=== PATIENT | male | born 1995 | race Caucasian/White ===

== ENCOUNTER 2020-10-18 08:28 | Emergency (ER) | payer BC, SELFPAY ==
[2020-10-18 08:34] VITALS: BP 133/64; PULSE 84; RESP 16; TEMP 36.8; O2SAT 99
--- NOTE | 2020-10-18 08:50 | W.ED.GENAD ---
Discharge Plan Discharge Details Chief Complaint: Orthopedic Primary Care Provider: Yamilex,Local ED Provider: Disha Tai Home Meds and New Rx's Prescriptions: No Action No Known Home Meds RF: 0 HPI General Mode of arrival: ambulatory. Date/Time Provider Initiated Documentation: 10/18/20 08:42. Limitations to Documentation: no limitations. Information obtained by: patient. HPI Narrative: This 25-year-old male presents with injury to bilateral ankles. He states he was playing softball yesterday and his feet got stuck in the mud, caused him to fall forward and he twisted both ankles. He states he had trouble ambulating after the event occurred. Denies any additional complaints. He denies any knee pain or back pain. Did not hit his head. States he is otherwise healthy. Took ibuprofen last evening. Has not taken any meds today. Denies strength or sensation change. Related Data Home Medications Medication Instructions Recorded Confirmed Unknown [No Known Home Meds] 10/18/20 10/18/20 Allergies Allergy/AdvReac Type Severity Reaction Status Date / Time codeine Allergy Mild Psychosis Unverified 10/18/20 08:38 General Stated Complaint: Orthopedic CLAIRE: 4 Review of Systems Narrative: Review of systems negative x3 aside from where indicated in HPI [facility] Medical History (Updated 04/05/19 @ 14:56 by Olga Castillo) Seasonal allergic rhinitis Social History Smoking/Tobacco Use Status: Never Smoking risk assessment performed?: Yes Substance use type: does not use Course Vital Signs Vital signs: Vital Signs Temperature 36.8 C 10/18/20 08:34 Pulse 84 10/18/20 08:34 Respiratory Rate 16 10/18/20 08:34 Blood Pressure 133/64 10/18/20 08:34 Pulse Oximetry 99 10/18/20 08:34 Temperature 36.8 C 10/18/20 08:34 Temperature Source Skin 10/18/20 08:34 Pulse 84 10/18/20 08:34 Respiratory Rate 16 10/18/20 08:34 Respiratory Effort Non-Labored 10/18/20 08:34 Blood Pressure 133/64 10/18/20 08:34 Blood Pressure Position Sitting 10/18/20 08:34 Pulse Oximetry 99 10/18/20 08:34 Oxygen Delivery Method Room Air 10/18/20 08:34 Oxygen Flow Rate 0 10/18/20 08:34 Pain Level 8 10/18/20 08:39
--- NOTE | 2020-10-18 09:16 | DI.RAD_ITS ---
Exam(s) XR ANKLE LT COMPLETE EXAM: XR ANKLE LT COMPLETE CLINICAL HISTORY: left lat mal pain twisting. TECHNIQUE: 2D digital imaging was performed. COMPARISON: CR XR ANKLE RT COMPLETE from 10/18/2020 FINDINGS: There is no evidence of fracture or widening of the mortise. Bone density is normal. Talar dome unr emarkable. No osseous lesions. No talar coalition. IMPRESSION: DATA REPOSITORY: RADIATION DOSE DELIVERED:
--- NOTE | 2020-10-18 09:17 | DI.RAD_ITS ---
Exam(s) XR ANKLE RT COMPLETE EXAM: XR ANKLE RT COMPLETE CLINICAL HISTORY: r lat mal pain, twist. TECHNIQUE: 2D digital imaging was performed. COMPARISON: No exams were available for comparison FINDINGS: There is soft tissue swelling laterally. No evidence of obvious fracture nor widening of the mortise . However, on the lateral view there is a very subtle cortical irregularity in the lateral malleolus . Possibly nondisplaced fracture. Talar dome appears unremarkable. Benign-appearing sclerotic bone lesions seen in the distal tibia. Ankle and subtalar joints appear unremarkable. IMPRESSION: Very subtle nondisplaced fracture of the lateral malleolus. There is overlying soft tissue swelling. DATA REPOSITORY: RADIATION DOSE DELIVERED:
== END 2020-10-18 10:00 | disposition home or self-care (01) ==
PROVIDERS: Emergency Provider Physician Assistant
DX: S82.491A Other fracture of shaft of right fibula, initial encounter for closed fracture (principal); M25.572 Pain in left ankle and joints of left foot; X50.1XXA Overexertion from prolonged static or awkward postures, initial encounter
CPT/HCPCS: 99284; 73610; 99283

== ENCOUNTER 2021-02-14 15:17 | Emergency (ER) | payer BC, SELFPAY ==
[2021-02-14 15:31] VITALS: BP 139/80; PULSE 88; RESP 20; TEMP 36.2; O2SAT 100
--- NOTE | 2021-02-14 16:30 | ED.GENADUL_ITS ---
Discharge Plan Disposition Patient Disposition: HOME Condition: Stable Discharge Details Clinical Impression: Pharyngitis Primary Care Provider: Anne Rosenberg ED Provider: Jameel Ardon Home Meds and New Rx's Prescriptions: New amoxicillin 875 mg tablet 875 mg PO BID Qty: 20 RF: 0 Discharge Instructions Instructions: Pharyngitis (ED) Additional Instructions: At this time clinically I am treating for strep pharyngitis. Your Covid test is pending, recommend quarantining until this comes back negative, likely in 2-3 days. Amoxicillin as directed. Salt water gargling as tolerated. [id number] Tylenol and/or Motrin as directed for discomfort. Chloraseptic [place] [id number] as directed. Please watch for new or worsening symptoms and return to the ER for any concerns. Lastly, I recommend contacting your primary care provider in the next 3-5 days if symptoms not improving prescription. Medical Decision Making 25-year-old gentleman 6-day history of worsening sore throat, general malaise, fever. Clinically he appears well, nontoxic, afebrile, O2 sat 100% on room air. No evidence of trismus. Airway is patent. Able to manage secretions no difficulty. Given his pharyngeal findings, fever, cervical lymphadenopathy, I do believe treating for strep pharyngitis perfectly reasonable. Rapid strep was obtained per protocol prior to my evaluation. We will also obtain a send out Covid Rapid strep negative, culture pending. Will treat as above Standard discharge and return precautions provided This documentation was generated using [email or web address] dictation system, please disregard any oddities of phrase or misspellings. Medical Records Medical records reviewed: Yes I reviewed the patient's medical records. Lab Data Lab results reviewed: Yes I reviewed the patient's lab results. Labs: 02/14/21 15:55 Pharynx Group A Streptococcus Culture - Pending HPI General Mode of arrival: ambulatory . Date/Time Provider Initiated Documentation: 02/14/21 15:38 . Limitations to Documentation: no limitations . Information obtained by: patient . History of Present Illness described as moderate, with intensity rated at 6. Quality is described as aching, and is localized to the neck (throat). Patient reports no radiation. Patient started experiencing this day(s) (6) and it has been constant (worsening). No relieving factors improve symptom(s), Other factors that worsen symptoms (swallowing) . Patient notes fever/chills (subjective), headaches and malaise; denies cough, nausea/vomiting and rash. Patient did receive the following treatments prior to arrival, NSAID Related Data Home Medications Medication Instructions Recorded Confirmed amoxicillin 875 mg PO BID #20 tab 02/14/21 Previous Rx's Medication Instructions Recorded amoxicillin 875 mg PO BID #20 tab 02/14/21 Allergies Allergy/AdvReac Type Severity Reaction Status Date / Time codeine Allergy Mild Psychosis Unverified 02/14/21 15:33 General Stated Complaint: Sorethroat CLAIRE: 4 Review of Systems Constitutional Constitutional: Reports fatigue, Reports fever(s) and Reports headache(s) ENT Ears, Nose, Mouth, and Throat: Reports headache(s) and Reports sore throat Cardiovascular Cardiovascular: Denies chest pain and Denies dyspnea Respiratory Respiratory: Denies cough and Denies dyspnea Gastrointestinal Gastrointestinal: Denies abdominal pain, Denies nausea and Denies vomiting Integumentary/Breasts Skin/Breast: Denies rash Neurologic Neurologic: Reports headache(s) Endocrine Endocrine: Reports fatigue [facility] [place] Active Problem List Pharyngitis (Acute) Right ankle sprain (Acute) Fibula fracture (Acute) Left ankle sprain (Acute) Allergic rhinitis due to allergen (Acute) Environmental allergies (Acute) Tonsillar hypertrophy (Acute) Impacted cerumen of both ears (Acute) Medical History Seasonal allergic rhinitis Social History Smoking/Tobacco Use Status: Never Smoking risk assessment performed?: Yes Substance use type: does not use Do you feel safe at home: Yes Do you feel safe in your relationship?: Yes Exam Const General: cooperative, healthy appearing, comfortable and no acute distress Orientation: alert and awake [facility] Head: normal to inspection, normocephalic and atraumatic Ears: external ears normal, TM's normal bilaterally and EAC's normal General nose exam: external nose normal Face and sinus: normal facial exam Mouth: oral mucosae normal and moist mucous membranes Teeth and gingiva: dentition normal Throat: tonsils normal, uvula midline, no peritonsillar masses, posterior oropharynx abnormal edema, erythema and exudates, uvula not displaced and no uvular edema Eyes General: appearance normal, both eyes and all related structures Conjunctivae: conjunctivae normal Neck Neck: normal visual inspection, full ROM, no meningeal signs, trachea midline, supple, lymphadenopathy bilateral anterior cervical and tender (Lymphadenopathy) Resp Effort & Inspection: normal respiratory effort and able to speak in complete sentences Auscultation: clear to auscultation bilaterally Cardio Rate: regular rate Rhythm: regular rhythm Skin General skin exam: no rashes or lesions noted Neuro General: patient alert, patient awake, moves all extremities and no focal motor deficits Sensory Exam: no sensory deficits noted Psych Appearance: grossly normal Mental Status: mental status grossly normal Course Vital Signs Vital signs: Vital Signs Temperature 36.2 C L 02/14/21 15:31 Pulse 88 02/14/21 15:31 Respiratory Rate 20 02/14/21 15:31 Blood Pressure 139/80 02/14/21 15:31 Pulse Oximetry 100 02/14/21 15:31 Temperature 36.2 C L 02/14/21 15:31 Temperature Source Temporal Artery Scan 02/14/21 15:31 Pulse 88 02/14/21 15:31 Respiratory Rate 20 02/14/21 15:31 Respiratory Effort Non-Labored 02/14/21 15:33 Blood Pressure 139/80 02/14/21 15:31 Pulse Oximetry 100 02/14/21 15:31 Oxygen Delivery Method Room Air 02/14/21 15:31 Oxygen Flow Rate 0 02/14/21 15:31 Pain Level 6 02/14/21 15:31 Lab/Test Results Lab/Test Results: 02/14/21 15:55 Pharynx Group A Streptococcus Culture - Pending POC Strep Test-MIRIAM(Rapid) Start: 02/14/21 15:38 Freq: .Rapid Strep Test Status: Active Protocol: Document 02/14/21 16:04 CL (Rec: 02/14/21 16:04 CL [id number]) Strep test-MIRIAM(Rapid)-POC POC-Strep test-MIRIAM (Rapid) Negative POC-Strep test-MIRIAM (Rapid) Negative
[2021-02-16 12:50] LABS: COVID-19 RT-PCR UVMMC Result Negative (Negative)
== END 2021-02-14 16:58 | disposition home or self-care (01) ==
PROVIDERS: Emergency Provider Physician Assistant; PCP Family Medicine
DX: J02.9 Acute pharyngitis, unspecified (principal); Z20.822 Contact with and (suspected) exposure to COVID-19
CPT/HCPCS: 87880; 99283; U0003; 87081